=== PATIENT | male | born 1975 | race Caucasian/White ===

== ENCOUNTER → 2024-12-24 | Outpatient (CLI) | payer BC ==
[2024-12-24 16:26] LABS: BILIRUBIN Negative (Negative); BLOOD Negative (Negative); CLARITY Clear (Clear); COLOR Yellow (Yellow); KETONE 4+ (Negative); LEUKO ESTERASE Negative (Negative); NITRITE Negative (Negative); PH 5.5 (4.5-8.0); SPECIFIC GRAVITY >= 1.030 (1.001-1.030); UROBILINOGEN 0.2 E.U./dl (0.0-1.0)
[2024-12-24 16:26] LABS: BASO # 0.1 10*3/uL (0.0-0.1); BASO % 0.9 % (0.0-1.0); EOS # 0.1 10*3/uL (0.0-0.4); EOS % 1.4 % (1.0-4.0); MEAN CELL VOLUME 84.6 fl (80.0-94.0); MEAN CORPUSCULAR HGB 28.8 pg (27.0-31.0); MEAN PLATELET VOLUME 9.4 fl (9.6-12.3); MONO # 0.4 10*3/uL (0.1-1.0); MONO % 7.6 % (3.0-9.0); NEUT # 3.4 10*3/uL (2.3-7.9); NEUT % 58.5 % (47.0-73.0); NUCLEATED RED BLOOD CELL 0.0 % (0.0-0.0); NUCLEATED RED BLOOD CELL 0.0 10*3/uL (0.0-0.0); PLATELET COUNT AUTOMATED 179 10*3/uL (130-400); RED CELL DISTRI WIDTH 13.6 % (0-14.5); RETICULOCYTE % 2.54 % (0.50-2.50)
[2024-12-24 16:33] LABS: RBC 0-2 rbc/hpf (0-2)
[2024-12-24 16:51] LABS: BUN 19 mg/dl (9-23); GAMMA GLUTAMYL TRANSFERASE 44 U/L (0-73); LDL CHOLESTEROL 108 mg/dL (9-159); SGPT/ALT 58 U/L (5-49); T3 UPTAKE 34.3 % (22.4-36.7); THYROXINE (T4) TOTAL 5.0 ug/dl (4.5-10.9)
[2024-12-24 16:52] LABS: VITAMIN D, 25-HYDROXY 34.4 ng/mL (30-100)
[2024-12-27 13:07] LABS: ANTI-DSDNA ANTIBODIES <1 IU/mL (0-9)
== END ==
LOC: LAB 15:14
PROVIDERS: ATTEND Family Medicine
DX: R06.02 Shortness of breath (principal); E55.9 Vitamin D deficiency, unspecified; R79.89 Other specified abnormal findings of blood chemistry; R53.83 Other fatigue

== ENCOUNTER → 2025-04-22 | Outpatient (CLI) | payer BC ==
[2025-04-22 15:13] LABS: BASO # 0.0 10*3/uL (0.0-0.1); BASO % 0.5 % (0.0-1.0); EOS # 0.2 10*3/uL (0.0-0.4); EOS % 2.1 % (1.0-4.0); MEAN CELL VOLUME 86.1 fl (80.0-94.0); MEAN CORPUSCULAR HGB 29.4 pg (27.0-31.0); MEAN PLATELET VOLUME 8.7 fl (9.6-12.3); MONO # 0.5 10*3/uL (0.1-1.0); MONO % 6.1 % (3.0-9.0); NEUT # 5.1 10*3/uL (2.3-7.9); NEUT % 65.7 % (47.0-73.0); NUCLEATED RED BLOOD CELL 0.0 % (0.0-0.0); NUCLEATED RED BLOOD CELL 0.0 10*3/uL (0.0-0.0); PLATELET COUNT AUTOMATED 192 10*3/uL (130-400); RED CELL DISTRI WIDTH 13.3 % (0-14.5); RETICULOCYTE % 2.05 % (0.50-2.50)
[2025-04-22 15:18] LABS: BILIRUBIN Negative (Negative); BLOOD Negative (Negative); CLARITY Clear (Clear); COLOR Yellow (Yellow); KETONE Negative (Negative); LEUKO ESTERASE Negative (Negative); NITRITE Negative (Negative); PH 6.5 (4.5-8.0); SPECIFIC GRAVITY 1.020 (1.001-1.030); UROBILINOGEN 1.0 E.U./dl (0.0-1.0)
[2025-04-22 15:43] LABS: BUN 21 mg/dl (9-23); GAMMA GLUTAMYL TRANSFERASE 25 U/L (0-73); LDL CHOLESTEROL 97 mg/dL (9-159); SGPT/ALT 43 U/L (5-49)
[2025-04-22 15:45] LABS: VITAMIN D, 25-HYDROXY 50.3 ng/mL (30-100)
== END | disposition home or self-care (01) ==
LOC: LAB 14:48
PROVIDERS: ATTEND Family Medicine
DX: R79.89 Other specified abnormal findings of blood chemistry (principal); E78.5 Hyperlipidemia, unspecified; E55.9 Vitamin D deficiency, unspecified; R53.83 Other fatigue